=== PATIENT | male | born 1965 | race Caucasian/White ===

== ENCOUNTER 2017-12-05 10:44 | Emergency (ER) | payer MEDICAID ==
[~2017-12-05] VITALS: Ht 185.4 cm; Wt 94.5 kg
[~2017-12-05 10:44] MED LIST: ACET1TAB12 PO; ALBU18HF2 IH; ALBU6.7H3 IH; BACDS PO; CEPH500C5 PO; CLIN-80 PO; CLON-527 PO; FLUT1DIS11; GABA100C PO; IBUP-1984 PO; LISI-600 PO; LISI10TA4 PO; MUPI22OI30 TP; NAPR-1144 PO; NORCO10T PO; OMEP-84 PO; SULF1TAB49 PO
[2017-12-05 12:22] VITALS: BP 140/87
[2017-12-05] MEDS ORDERED: ipratropium/albuterol 3ml nebule NEB ONE (12:35)
[2017-12-05] MEDS ORDERED: AFRIN (13:08)
[2017-12-05] MEDS ORDERED: ALBU8.5H8 INH (13:08)
[2017-12-05] MEDS ORDERED: GUAI120015 PO (13:08)
[2017-12-05] MEDS ORDERED: BENZ-38 PO (13:08)
== END 2017-12-05 13:21 | disposition home or self-care (01) ==
LOC: ER 10:45
DX: J06.9 Acute upper respiratory infection, unspecified (principal); I10 Essential (primary) hypertension; K21.9 Gastro-esophageal reflux disease without esophagitis; G89.29 Other chronic pain; F17.200 Nicotine dependence, unspecified, uncomplicated; F12.10 Cannabis abuse, uncomplicated; F41.9 Anxiety disorder, unspecified; Z88.0 Allergy status to penicillin; Z88.8 Allergy status to other drugs, medicaments and biological substances; Z79.899 Other long term (current) drug therapy; Z90.49 Acquired absence of other specified parts of digestive tract
CPT/HCPCS: 71046; 94640; 94760; 99284

== ENCOUNTER 2018-05-16 19:50 | Emergency (ER) | payer MEDICAID ==
[~2018-05-16] VITALS: Ht 185.4 cm; Wt 100.0 kg
[~2018-05-16 19:50] MED LIST changes: +AFRIN; +ALBU8.5H8 INH; -CLIN-80 PO; +CLIN300C85 PO; +GUAI120015 PO; -IBUP-1984 PO; -MUPI22OI30 TP; -SULF1TAB49 PO
[2018-05-16] MEDS ORDERED: acetaminophen 325mg tablet PO ONE (20:05)
[2018-05-16] MEDS ORDERED: ketorolac tromethamine 15mg/ml inj. IM ONE (21:20)
[2018-05-16] MEDS ORDERED: clindamycin 150mg capsule PO ONE (21:25)
[2018-05-16] MEDS ORDERED: CLIN150C8 PO (21:28)
[2018-05-16] MEDS ORDERED: OMEP40CA37 PO (21:31)
[2018-05-16 22:04] VITALS: BP 125/80
== END 2018-05-16 22:14 | disposition home or self-care (01) ==
LOC: ER 19:51
DX: L03.113 Cellulitis of right upper limb (principal); I10 Essential (primary) hypertension; F12.10 Cannabis abuse, uncomplicated; K21.9 Gastro-esophageal reflux disease without esophagitis; J45.909 Unspecified asthma, uncomplicated; G89.29 Other chronic pain; Z88.0 Allergy status to penicillin; Z88.8 Allergy status to other drugs, medicaments and biological substances; Z59.0 Homelessness; Z56.0 Unemployment, unspecified
CPT/HCPCS: 99284

== ENCOUNTER 2018-12-17 08:21 | Emergency (ER) | payer MEDICAID ==
[~2018-12-17 08:21] MED LIST changes: -CEPH500C5 PO; +CLIN150C8 PO
--- NOTE | 2018-12-17 08:32 | NUR ---
Not in lobby at [phone] and [id number]
== END 2018-12-17 08:59 | disposition left against medical advice (07) ==
LOC: ER 08:23
DX: K21.9 Gastro-esophageal reflux disease without esophagitis (principal); Z53.21 Procedure and treatment not carried out due to patient leaving prior to being seen by health care provider